=== PATIENT | male | born 1955 | race Caucasian/White ===

== ENCOUNTER 2020-04-30 07:45 | Day surgery (SDC) | payer MEDICARE, BC ==
[~2020-04-30 07:45] MED LIST: Lactated Ringers 1,000 ML IV SCH
[2020-04-30] MEDS ORDERED: Propofol 200 MG/20 ML SDV ONE (08:13)
[2020-04-30] MEDS ORDERED: fentaNYL 100 MCG/2 ML SDV ONE (08:13)
[2020-04-30 09:56] VITALS: BP 125/68; PULSE 69
--- NOTE | 2020-04-30 14:29 | OR ---
DATE OF SURGERY: 04/30/2020. REFERRING PROVIDER: AMBERLY Dickerson PRE-OPERATIVE DIAGNOSIS: History of colon polyps. Last colonoscopy was in 02/2015. There is no family history of colon cancer. POST-OPERATIVE DIAGNOSES: 1. A 2 mm cecal polyp, removed using cold forceps. 2. Normal-appearing distal ileum. 3. Mild hemorrhoids. 4. Enlarged prostate but no palpable nodules noted. PROCEDURE: Colonoscopy with polypectomy x1 using cold forceps. SURGEON: Wili Roberts M.D. ANESTHESIA: Monitored anesthesia care. BOWEL PREP: Allen Hill is a 64-year-old male who was brought to the endoscopy suite after discussing risks and benefits of the procedure. Informed consent was obtained for conscious sedation and colonoscopy with or without biopsy and/or polypectomy. We also discussed possibility of missed lesions. Pre-procedure exam was unremarkable. IV, oxygen, and monitors were placed. The patient was placed in the left lateral decubitus position. Sedation was administered and a digital rectal exam was performed which was remarkable for moderate to significantly enlarged prostate. There were no palpable nodules noted. Colonoscope was passed into the rectum and slowly advanced all the way to the cecum. Cecum was viewed and photographed. There was a 2 mm polyp noted within the cecum, which was removed using cold forceps. Ileocecal valve was intubated and distal ileum was normal in appearance. The colonoscope was slowly withdrawn and the mucosa was closed observed in a direct circumferential manner. The ascending colon was unremarkable. The transverse colon was unremarkable. The descending colon was unremarkable. The sigmoid colon was unremarkable. Retroflexion was performed and rectal mucosa revealed some mild hemorrhoids, not acutely inflamed. Scope was removed. The patient tolerated the procedure well. The patient was monitored until that baseline status. Discharge instructions were reviewed and the patient was discharged in good condition. COMPLICATIONS: None. TOTAL TIME: 26 minutes. ESTIMATED BLOOD LOSS: Less than 1 mL. RECOMMENDATIONS/FOLLOW-UP: We will await results of path report to determine ideal followup interval. I would like to kindly thank Amauri Kevin for this referral. DMB: 04/30/2020 09:49:25 MODL: 04/30/2020 13:27:10 /[id number]
== END 2020-04-30 10:40 | disposition home or self-care (01) ==
LOC: VM.SDS 07:45
PROVIDERS: ATTEND Family Medicine
DX: Z12.11 Encounter for screening for malignant neoplasm of colon (principal); D12.0 Benign neoplasm of cecum; K64.9 Unspecified hemorrhoids; N40.0 Benign prostatic hyperplasia without lower urinary tract symptoms; Z79.899 Other long term (current) drug therapy; Z98.890 Other specified postprocedural states; Z01.812 Encounter for preprocedural laboratory examination; Z20.822 Contact with and (suspected) exposure to COVID-19
CPT/HCPCS: 00811; 88305; J2704; J3010; J7120; U0002